=== PATIENT | female | born 1960 | race Caucasian/White ===

== ENCOUNTER 2017-01-03 08:08 | Emergency (ER) | payer MEDICARE ==
--- NOTE | 2017-01-03 10:16 | RAD ---
CHEST 2 VIEWS: HISTORY: Cough. COMPARISON: Chest 1 view 10/14/16. FINDINGS: The lungs are clear. No pneumothorax or effusion. Cardiac silhouette and mediastinal contours are within normal limits. IMPRESSION: No acute intrathoracic abnormality. No significant change. POS: [facility]
[2017-01-03 10:49] LABS: Bilirubin Negative (Negative); Blood, Urine Negative (Negative); Glucose, Urine (Dipstick) Negative (Negative); Ketone, Urine Negative (Negative); Nitrite Negative (Negative); Protein, Urine (Dipstick) Negative (Neg-Trace); Urobilinogen 0.2 mg/dL (0.2-1.0)
[2017-01-03 10:51] LABS: Bacteria/HPF None Seen HPF (None Seen); Hyaline Casts/LPF 0-3 HYALINE CAST LPF (0-3 Hyaline); Squamous Epithelial 0-3 HPF (0-3)
[2017-01-03] MEDS ORDERED: Ondansetron ODT 4 MG TAB ONE (11:16)
== END 2017-01-03 11:10 | disposition home or self-care (01) ==
LOC: ERS 08:08
DX: N39.0 Urinary tract infection, site not specified (principal); B34.9 Viral infection, unspecified; I48.91 Unspecified atrial fibrillation; I10 Essential (primary) hypertension; F31.9 Bipolar disorder, unspecified
CPT/HCPCS: 71020; 81003; 81015; 87086; Q0162

== ENCOUNTER 2017-06-29 06:12 | Emergency (ER) | payer MEDICARE ==
[2017-06-29 06:54] LABS: Actual Bicarbonate (HCO3a) 26.2 mEq/L (22-26); CO2 Tension 40.6 mmHg (35.0-45.0); O2 Tension (PaO2) 80.7 mmHg (80.0-100.0); pH, Arterial 7.43 (7.35-7.45)
[2017-06-29 06:55] LABS: Analyzer IN Cardio ER; Base Excess (BEa) 1.7 mEq/L (0 (+/-) 2.5); Calcium, Ionized 1.2 mmol/L (1.12-1.30); Hematocrit-ABG 29.4 % (36.0-47.0); Hemoglobin (Hb) 8.7 g/dL (12.0-16.0); Puncture Site LBA
[2017-06-29 07:23] LABS: #Eosinphils 0.3 thou/uL (0.0-0.7); #Lymphocytes 1.5 thou/uL (1.20-3.40); #Monocytes 0.6 thou/uL (0.11-0.59); %Basophils 0.5 % (0.0-1.0); %Eosinophils 5.3 % (0.0-10.0); %Lymphocytes 22.8 % (21.0-51.0); %Monocytes 9.9 % (0.0-10.0); %Neutrophils 61.6 % (42.0-75.0); Hemoglobin 9.2 g/dL (12.0-16.0); Mean Corpuscular HGB CONC 31.6 g/dL (32.0-36.0); Mean Corpuscular Hemoglobin 24.6 pg (27.0-31.0); Mean Corpuscular Volume 77.7 fl (81.0-99.0); Mean Platelet Volume 8.8 fL (7.4-10.4); Platelet Count 310 thou/uL (130-400); RBC Distribution Width 14.5 % (11.5-14.5); Red Blood Cell (RBC) Count 3.72 mill/uL (4.20-5.40); White Blood Cell (WBC) Count 6.4 thou/uL (4.8-10.8)
[2017-06-29 07:38] LABS: ALT (SGPT) 13 U/L (8-55); AST (SGOT) 24 U/L (5-34); Alkaline Phosphatase 107 U/L (40-150); Anion Gap 10 mmol/L (10-20); BUN (Urea Nitrogen) 10 mg/dL (9.8-20.1); Bilirubin, Total 0.4 mg/dL (0.2-1.2); Calc. Creatinine Clearance 0 mL/min (70-130); Calcium 9.1 mg/dL (7.8-10.44); Carbon Dioxide 29 mmol/L (22-29); Chloride 105 mmol/L (98-107); Estimated GFR-MDRD Greater than 90; Globulin 3.1 g/dL (2.4-3.5); Glucose 65 mg/dL (70-105); Potassium 3.5 mmol/L (3.5-5.1); Protein, Total 7.1 g/dL (6.0-8.3); Sodium 140 mmol/L (136-145)
[2017-06-29 07:42] LABS: CKMB 2.4 ng/mL (0-6.6); Troponin I Less than 0.010 ng/mL (< 0.028)
--- NOTE | 2017-06-29 09:26 | RAD ---
CHEST 1 VIEW: HISTORY: Chest pain. COMPARISON: Chest radiograph 10/14/16. FINDINGS: Lungs are clear. No pneumothorax or effusion. Cardiac silhouette and mediastinal contours are withi n normal limits. IMPRESSION: No acute intrathoracic abnormality. POS: [facility]
== END 2017-06-29 08:18 | disposition home or self-care (01) ==
LOC: ERS 06:12
DX: T58.91XA Toxic effect of carbon monoxide from unspecified source, accidental (unintentional), initial encounter (principal); I48.91 Unspecified atrial fibrillation; I10 Essential (primary) hypertension
CPT/HCPCS: 36415; 71045; 80053; 82375; 82553; 82805; 84484; 85025; 93005

== ENCOUNTER 2017-07-21 23:36 | Emergency (ER) | payer MEDICARE ==
[2017-07-22] MEDS ORDERED: Ketorolac Tromethamine 30 MG/ML VIAL ONE (00:23)
--- NOTE | 2017-07-22 08:02 | RAD ---
RIGHT FEMUR TWO VIEWS: History: Right hip pain radiating to right lower extremity. FINDINGS/IMPRESSION: The right femur is intact. POS: [facility]
== END 2017-07-22 01:45 | disposition home or self-care (01) ==
LOC: ERS 23:36
DX: M54.41 Lumbago with sciatica, right side (principal); I48.91 Unspecified atrial fibrillation; I10 Essential (primary) hypertension; E11.9 Type 2 diabetes mellitus without complications; F31.9 Bipolar disorder, unspecified; Z79.899 Other long term (current) drug therapy
CPT/HCPCS: 96372; J1885

== ENCOUNTER 2017-07-27 18:21 | Emergency (ER) | payer MEDICARE ==
--- NOTE | 2017-07-27 19:31 | RAD ---
RIGHT RIBS THREE VIEWS: History: Fall, right sided chest pain. FINDINGS/IMPRESSION: No right sided rib fracture is seen. POS: [facility]
--- NOTE | 2017-07-27 19:38 | RAD ---
RIGHT WRIST THREE VIEWS: History: Fall, right wrist pain. FINDINGS/IMPRESSION: No acute fracture or dislocation is seen. If symptoms do not improve, follow up exam should be obtained in 7-10 days. POS: [facility]
--- NOTE | 2017-07-27 19:40 | RAD ---
LEFT WRIST THREE VIEWS: History: Fall. Left wrist pain. FINDINGS/IMPRESSION: No acute fracture or dislocation identified. If symptoms do not improve, follow up exam should be obtained in 7-10 days. POS: [facility]
== END 2017-07-27 20:07 | disposition home or self-care (01) ==
LOC: ERS 18:21
DX: M25.532 Pain in left wrist (principal); M25.531 Pain in right wrist; R07.81 Pleurodynia; I49.9 Cardiac arrhythmia, unspecified; I48.91 Unspecified atrial fibrillation; I10 Essential (primary) hypertension; E11.9 Type 2 diabetes mellitus without complications; F31.9 Bipolar disorder, unspecified; W01.0XXA Fall on same level from slipping, tripping and stumbling without subsequent striking against object, initial encounter

== ENCOUNTER 2017-08-04 00:55 | Emergency (ER) | payer MEDICARE ==
[2017-08-04] MEDS ORDERED: Ketorolac Tromethamine 30 MG/ML VIAL ONE (01:35)
--- NOTE | 2017-08-04 08:20 | RAD ---
PA CHEST XRAY WITH 3 VIEWS RIGHT SIDED RIBS: DATE: 08/04/17. HISTORY: Right chest injury. The patient complains of lung pain. COMPARISON: 06/29/17. FINDINGS: Cardiac silhouette and pulmonary vasculature are within normal limits. There is stable atelectasis r ight hemidiaphragm. The lungs are clear. There is no pneumothorax or pleural effusion identified. Right-sided ribs demonstrate a normal appearance and no fracture is seen. IMPRESSION: 1. No acute cardiopulmonary process. 2. No right-sided rib fractures visualized. POS: [facility]
== END 2017-08-04 02:21 | disposition home or self-care (01) ==
LOC: ERS 00:55
DX: S20.211A Contusion of right front wall of thorax, initial encounter (principal); I48.91 Unspecified atrial fibrillation; I10 Essential (primary) hypertension; E11.9 Type 2 diabetes mellitus without complications; F31.9 Bipolar disorder, unspecified; Z87.891 Personal history of nicotine dependence; W18.2XXA Fall in (into) shower or empty bathtub, initial encounter
CPT/HCPCS: 93005; 96372; J1885

== ENCOUNTER 2017-08-09 00:04 | Emergency (ER) | payer MEDICARE ==
[2017-08-09 00:33] LABS: #Eosinphils 0.3 thou/uL (0.0-0.7); #Lymphocytes 1.7 thou/uL (1.20-3.40); #Monocytes 0.6 thou/uL (0.11-0.59); #Neutrophils 4.5 thou/uL (1.40-6.50); %Basophils 0.5 % (0.0-1.0); %Eosinophils 3.8 % (0.0-10.0); %Lymphocytes 23.3 % (21.0-51.0); %Monocytes 8.8 % (0.0-10.0); %Neutrophils 63.7 % (42.0-75.0); Hemoglobin 8.6 g/dL (12.0-16.0); Mean Corpuscular HGB CONC 31.9 g/dL (32.0-36.0); Mean Corpuscular Hemoglobin 24.3 pg (27.0-31.0); Mean Corpuscular Volume 76.2 fl (81.0-99.0); Mean Platelet Volume 8.8 fL (7.4-10.4); Platelet Count 317 thou/uL (130-400); RBC Distribution Width 14.9 % (11.5-14.5); Red Blood Cell (RBC) Count 3.55 mill/uL (4.20-5.40); White Blood Cell (WBC) Count 7.1 thou/uL (4.8-10.8)
[2017-08-09 00:54] LABS: ALT (SGPT) 12 U/L (8-55); AST (SGOT) 26 U/L (5-34); Albumin 3.9 g/dL (3.5-5.0); Alkaline Phosphatase 119 U/L (40-150); Anion Gap 11 mmol/L (10-20); BUN (Urea Nitrogen) 9 mg/dL (9.8-20.1); Bilirubin, Total 0.4 mg/dL (0.2-1.2); Calc. Creatinine Clearance 0 mL/min (70-130); Calcium 8.9 mg/dL (7.8-10.44); Carbon Dioxide 27 mmol/L (22-29); Chloride 104 mmol/L (98-107); Estimated GFR-MDRD 88; Globulin 3.1 g/dL (2.4-3.5); Glucose 84 mg/dL (70-105); Lipase 88 U/L (8-78); Potassium 4.2 mmol/L (3.5-5.1); Sodium 138 mmol/L (136-145)
[2017-08-09 01:17] LABS: Acetaminophen Less than 6.0 mcg/mL (10.0-30.0); Alcohol Less than 10 mg/dL (Less than 10); Salicylate Less than 8.0 mg/dL (15.0-30.0)
[2017-08-09 01:23] LABS: Bilirubin Negative (Negative); Blood, Urine Negative (Negative); Clarity CLEAR (Clear); Glucose, Urine (Dipstick) Negative (Negative); Leukocyte Negative (Negative); Nitrite Negative (Negative); Protein, Urine (Dipstick) Negative (Neg-Trace); Specific Gravity, Urine 1.003 (1.002-1.036); Urobilinogen 0.2 mg/dL (0.2-1.0)
[2017-08-09 01:28] LABS: Pregnancy Test - Urine (BHCG) Negative (Negative); Pregu Control Background? CLEAR/WHITE (CLR/WHITE); Pregu Control Bar Appear? YES (CONTROL BAR); Specific Gravity 1.003 (1.002-1.036)
[2017-08-09 01:38] LABS: Amphetamine Not Detected (NotDetected); Barbiturates Screen Not Detected (NotDetected); Benzodiazepine Screen Not Detected (NotDetected); Cocaine Metabolite Screen Not Detected (NotDetected); Medtox Control Line Valid? VALID (VALID); Medtox Reader # READER 4; Methadone Not Detected (NotDetected); Methamphetamine Not Detected (NotDetected); Opiate Screen Not Detected (NotDetected); Oxycodone Screen Not Detected (NotDetected); Phencyclidine (PCP) Not Detected (NotDetected); THC/Cannabinoid Screen Not Detected (NotDetected); Tricyclic Screen Not Detected (NotDetected)
--- NOTE | 2017-08-09 07:51 | RAD ---
ONE VIEW CHEST RIGHT RIBS 3 VIEWS: COMPARISON: 08/04/17. HISTORY: Right rib pain. FINDINGS: ONE VIEW CHEST: Normal cardiac silhouette. Pulmonary vessels and hilum are normal. Costophrenic angles are clear. No masses or consolidation. No pneumothorax. RIGHT RIB SERIES: No fracture. No cortical irregularity or periosteal reaction. IMPRESSION: 1. No acute cardiopulmonary process. 2. No right rib fracture. 3. No significant change. POS: [facility]
== END 2017-08-09 08:47 ==
LOC: ERS 00:04
DX: F23 Brief psychotic disorder (principal); D64.9 Anemia, unspecified; E03.9 Hypothyroidism, unspecified; R44.1 Visual hallucinations; I48.91 Unspecified atrial fibrillation; I10 Essential (primary) hypertension; E11.9 Type 2 diabetes mellitus without complications; F31.9 Bipolar disorder, unspecified; Z87.891 Personal history of nicotine dependence
CPT/HCPCS: 36415; 80053; 80306; 80307; 81003; 81025; 82550; 83690; 84443; 85025; 93005

== ENCOUNTER 2017-10-06 22:08 | Emergency (ER) | payer MEDICARE, OTHER ==
[2017-10-06] MEDS ORDERED: Ibuprofen 800 MG TAB ONE (22:27)
[2017-10-06 22:37] LABS: Bilirubin Negative (Negative); Blood, Urine Negative (Negative); Clarity CLEAR (Clear); Glucose, Urine (Dipstick) Negative (Negative); Leukocyte Small (Negative); Nitrite Negative (Negative); Protein, Urine (Dipstick) Negative (Neg-Trace); Specific Gravity, Urine 1.007 (1.002-1.036); Urobilinogen 0.2 mg/dL (0.2-1.0)
[2017-10-06 22:38] LABS: Bacteria/HPF None Seen HPF (None Seen); Hyaline Casts/LPF 0-3 HYALINE CAST LPF (0-3 Hyaline); Pathc Cast-AUWi Flag 0.14 (0-2.49); RBC/HPF 0-3 HPF (0-3); Squamous Epithelial None Seen HPF (0-3); WBC/HPF 0-3 HPF (0-3)
== END 2017-10-06 23:11 | disposition home or self-care (01) ==
LOC: ERS 22:08
DX: R10.9 Unspecified abdominal pain (principal); D64.9 Anemia, unspecified; I48.91 Unspecified atrial fibrillation; I10 Essential (primary) hypertension; E11.9 Type 2 diabetes mellitus without complications; F31.9 Bipolar disorder, unspecified; Z87.891 Personal history of nicotine dependence; Z79.84 Long term (current) use of oral hypoglycemic drugs; Z79.899 Other long term (current) drug therapy
CPT/HCPCS: 36416; 81003; 81015; 99284

== ENCOUNTER 2018-10-20 04:17 | Emergency (ER) | payer MEDICARE ==
[2018-10-20] MEDS ORDERED: Ondansetron ODT 4 MG TAB ONE (04:28)
[2018-10-20] MEDS ORDERED: Ketorolac Tromethamine 30 MG/ML VIAL ONE (04:28)
[2018-10-20 04:44] LABS: #Eosinphils 0.1 thou/uL (0.0-0.7); #Lymphocytes 0.4 thou/uL (1.20-3.40); #Monocytes 0.5 thou/uL (0.11-0.59); #Neutrophils 7.6 thou/uL (1.40-6.50); %Basophils 0.3 % (0.0-1.0); %Eosinophils 1.7 % (0.0-10.0); %Monocytes 5.8 % (0.0-10.0); %Neutrophils 87.2 % (42.0-75.0); Hemoglobin 12.1 g/dL (12.0-16.0); Mean Corpuscular Hemoglobin 28.8 pg (27.0-31.0); Platelet Count 211 thou/uL (130-400); Red Blood Cell (RBC) Count 4.21 mill/uL (4.20-5.40); White Blood Cell (WBC) Count 8.7 thou/uL (4.8-10.8)
[2018-10-20 05:07] LABS: ALT (SGPT) 10 U/L (8-55); AST (SGOT) 15 U/L (5-34); Albumin 3.8 g/dL (3.5-5.0); Alkaline Phosphatase 99 U/L (40-150); Anion Gap 13 mmol/L (10-20); BUN (Urea Nitrogen) 9 mg/dL (9.8-20.1); Bilirubin, Total 0.7 mg/dL (0.2-1.2); CK (CPK) 49 U/L (29-168); Calc. Creatinine Clearance 0 mL/min (70-130); Calcium 9.4 mg/dL (7.8-10.44); Carbon Dioxide 27 mmol/L (22-29); Chloride 104 mmol/L (98-107); Estimated GFR-MDRD 81; Globulin 2.9 g/dL (2.4-3.5); Glucose 94 mg/dL (70-105); Lipase 44 U/L (8-78); Potassium 4.2 mmol/L (3.5-5.1); Protein, Total 6.7 g/dL (6.0-8.3); Sodium 140 mmol/L (136-145)
== END 2018-10-20 05:15 | disposition home or self-care (01) ==
LOC: ERS 04:17
DX: E11.40 Type 2 diabetes mellitus with diabetic neuropathy, unspecified (principal); I10 Essential (primary) hypertension; Z87.891 Personal history of nicotine dependence
CPT/HCPCS: 36415; 80053; 82550; 83690; 85025; 96372; J1885; Q0162

== ENCOUNTER 2019-02-20 02:45 | Emergency (ER) | payer MEDICARE ==
[2019-02-20] MEDS ORDERED: Ibuprofen 200 MG TAB ONE (03:01)
== END 2019-02-20 03:11 | disposition home or self-care (01) ==
LOC: ERS 02:45
DX: M25.542 Pain in joints of left hand (principal); M25.541 Pain in joints of right hand; D64.9 Anemia, unspecified; I49.9 Cardiac arrhythmia, unspecified; I48.91 Unspecified atrial fibrillation; E11.9 Type 2 diabetes mellitus without complications; I10 Essential (primary) hypertension; F31.9 Bipolar disorder, unspecified; Z87.891 Personal history of nicotine dependence
CPT/HCPCS: 99283

== ENCOUNTER 2019-02-22 01:21 | Emergency (ER) | payer MEDICARE ==
[2019-02-22 01:45] LABS: #Eosinphils 0.2 thou/uL (0.0-0.7); #Lymphocytes 1.5 thou/uL (1.20-3.40); #Monocytes 0.6 thou/uL (0.11-0.59); %Basophils 0.5 % (0.0-1.0); %Eosinophils 3.3 % (0.0-10.0); %Lymphocytes 23.9 % (21.0-51.0); %Monocytes 9.2 % (0.0-10.0); %Neutrophils 63.1 % (42.0-75.0); Hemoglobin 11.9 g/dL (12.0-16.0); Mean Corpuscular HGB CONC 33.7 g/dL (32.0-36.0); Mean Corpuscular Hemoglobin 30.3 pg (27.0-31.0); Mean Corpuscular Volume 89.8 fL (78.0-98.0); Mean Platelet Volume 9.4 fL (7.4-10.4); Platelet Count 275 thou/uL (130-400); RBC Distribution Width 13.1 % (11.5-14.5); Red Blood Cell (RBC) Count 3.93 mill/uL (4.20-5.40); White Blood Cell (WBC) Count 6.3 thou/uL (4.8-10.8)
[2019-02-22 02:15] LABS: ALT (SGPT) 11 U/L (8-55); AST (SGOT) 20 U/L (5-34); Albumin 4.1 g/dL (3.5-5.0); Alkaline Phosphatase 110 U/L (40-110); BUN (Urea Nitrogen) 12 mg/dL (9.8-20.1); Bilirubin, Total 0.4 mg/dL (0.2-1.2); CK (CPK) 70 U/L (29-168); Calc. Creatinine Clearance 0 mL/min (70-130); Calcium 9.2 mg/dL (7.8-10.44); Carbon Dioxide 28 mmol/L (22-29); Chloride 104 mmol/L (98-107); Estimated GFR-MDRD 86; Globulin 2.6 g/dL (2.4-3.5); Glucose 86 mg/dL (70-105); Lipase 65 U/L (8-78); Protein, Total 6.7 g/dL (6.0-8.3); Sodium 140 mmol/L (136-145)
[2019-02-22 02:48] LABS: Anion Gap 12 mmol/L (10-20)
[2019-02-22 05:57] LABS: Bacteria/HPF None Seen HPF (None Seen); Bilirubin Negative (Negative); Blood, Urine Negative (Negative); Clarity Clear (Clear); Glucose, Urine (Dipstick) Normal (Negative); Leukocyte 250 Leu/uL (Negative); Nitrite Negative (Negative); Protein, Urine (Dipstick) Negative (Neg-Trace); RBC/HPF 0-3 HPF (0-3); Squamous Epithelial None Seen HPF (0-3); Urobilinogen Normal mg/dL (Less than 2)
[2019-02-22] MEDS ORDERED: Ketorolac Tromethamine 30 MG/ML VIAL ONE (06:45)
[2019-02-22 07:20] LABS: Troponin I 0.016 ng/mL (< 0.028)
--- NOTE | 2019-02-22 09:14 | RAD ---
RADIOGRAPH CHEST 1 VIEW: DATE: 02/22/19 HISTORY: 58-year-old female with chest pain. FINDINGS: The thoracic aorta is tortuous and ectatic. There is no evidence of air space density, pneumothorax, or pulmonary edema. The lateral costophrenic angles are sharp. There is no cardiomegaly. IMPRESSION: 1. No acute pulmonary findings. 2. Ectasia of thoracic aorta. jn [] POS: [facility]
== END 2019-02-22 07:40 | disposition home or self-care (01) ==
LOC: ERS 01:21
DX: R07.89 Other chest pain (principal); D64.9 Anemia, unspecified; I49.9 Cardiac arrhythmia, unspecified; I48.91 Unspecified atrial fibrillation; I10 Essential (primary) hypertension; E11.9 Type 2 diabetes mellitus without complications; F31.9 Bipolar disorder, unspecified; Z87.891 Personal history of nicotine dependence
CPT/HCPCS: 36415; 36416; 71045; 80053; 81003; 81015; 82550; 83690; 83880; 84484; 85025; 85379; 93005; 96372; J1885

== ENCOUNTER 2019-02-23 22:19 | Emergency (ER) | payer MEDICARE, OTHER ==
--- NOTE | 2019-02-23 23:28 | CT ---
CT BRAIN WITHOUT CONTRAST: HISTORY:Altered mental status, vision changes COMPARISON:02/12/2016 FINDINGS: No evidence of acute infarct, hemorrhage, midline shift or abnormal extra-axial fluid collections is seen. The ventricular size is appropriate and the basilar cisterns are patent. The bony calvarium is intact. There is mucosal disease in the paranasal sinuses. IMPRESSION: No CT evidence of acute intracranial process.
== END 2019-02-24 00:22 | disposition home or self-care (01) ==
LOC: ERS 22:19
DX: E11.40 Type 2 diabetes mellitus with diabetic neuropathy, unspecified (principal); I48.91 Unspecified atrial fibrillation; I10 Essential (primary) hypertension; Z87.891 Personal history of nicotine dependence
CPT/HCPCS: 70450; 93005

== ENCOUNTER 2019-06-19 11:07 | Emergency (ER) | payer MEDICARE ==
--- NOTE | 2019-06-19 12:14 | RAD ---
PA CHEST AND RIGHT RIBS 3 VIEWS: HISTORY: Right rib pain status post fall. FINDINGS: Heart size and mediastinum are within normal limits. The lungs are clear of any infiltrates. I do n ot appreciate any acute rib fractures. There is a healed right posterolateral 9th rib fracture. IMPRESSION: No acute injury. POS: [facility]
[2019-06-19] MEDS ORDERED: Ketorolac Tromethamine 30 MG/ML VIAL ONE (12:20)
[2019-06-19 13:09] LABS: Bacteria/HPF None Seen HPF (None Seen); Bilirubin Negative (Negative); Blood, Urine Trace (Negative); Clarity Clear (Clear); Glucose, Urine (Dipstick) Normal (Negative); Leukocyte Negative Leu/uL (Negative); Mucous/LPF Rare LPF (<2+); Nitrite Negative (Negative); Protein, Urine (Dipstick) 10 mg/dL (Neg-Trace); RBC/HPF 0-3 HPF (0-3); Squamous Epithelial 0-3 HPF (0-3); Urobilinogen Normal mg/dL (Less than 2); WBC/HPF 0-3 HPF (0-3)
== END 2019-06-19 13:27 | disposition home or self-care (01) ==
LOC: ERS 11:07
DX: S20.211A Contusion of right front wall of thorax, initial encounter (principal); R31.9 Hematuria, unspecified; D64.9 Anemia, unspecified; I48.91 Unspecified atrial fibrillation; I10 Essential (primary) hypertension; E11.9 Type 2 diabetes mellitus without complications; F31.9 Bipolar disorder, unspecified; Z87.891 Personal history of nicotine dependence; W18.30XA Fall on same level, unspecified, initial encounter
CPT/HCPCS: 81003; 81015; 96372; J1885